=== PATIENT | male | born 1970 | race Caucasian/White ===

== ENCOUNTER → 2017-06-03 | Outpatient (REF) | payer BC ==
[2017-06-08 00:08] LABS: ANCA-ATYPICAL <1:20 titer (Neg:<1:20); CYTOPLASMIC NEUTROP AB ANCA-C <1:20 titer (Neg:<1:20); Lyme Disease IgG Ab 18 kDa Ban Absent (.); Lyme Disease IgG Ab 23 kDa Ban Absent (.); Lyme Disease IgG Ab 28 kDa Ban Absent (.); Lyme Disease IgG Ab 30 kDa Ban Present (.); Lyme Disease IgG Ab 39 kDa Ban Absent (.); Lyme Disease IgG Ab 41 kDa Ban Absent (.); Lyme Disease IgG Ab 45 kDa Ban Absent (.); Lyme Disease IgG Ab 58 kDa Ban Absent (.); Lyme Disease IgG Ab 66 kDa Ban Absent (.); Lyme Disease IgG Ab 93 kDa Ban Absent (.); Lyme Disease IgG West Blot Int Negative (.); Lyme Disease IgG/IgM Antibodie 1.49 ISR (0.00-0.90); Lyme Disease IgM Ab 23 kDa Ban Present (.); Lyme Disease IgM Ab 39 kDa Ban Absent (.); Lyme Disease IgM Ab 41 kDa Ban Absent (.); Lyme Disease IgM Ab Quantitati <0.80 index (0.00-0.79); Lyme Disease IgM West Blot Int Negative (.); PERINUCLEAR AB ANCA-P <1:20 titer (Neg:<1:20)
== END ==
LOC: M LABNEURO 14:06
DX: G62.9 Polyneuropathy, unspecified (principal)
CPT/HCPCS: 86256

== ENCOUNTER → 2017-06-15 | Outpatient (REF) | payer BC ==
[2017-06-18 06:23] LABS: C-PEPTIDE 2.6
[2017-06-18 06:25] LABS: INSULIN LEVEL 10.5 mcU/ML
== END ==
LOC: M LABNEURO 08:09
DX: E66.9 Obesity, unspecified (principal)
CPT/HCPCS: 83525

== ENCOUNTER → 2019-05-05 | Outpatient (CLI) | payer BC ==
[2019-05-05 13:56] LABS: ERYTHROCYTE SEDIMENTATION RATE 17 mm/hr (0-15)
[2019-05-05 13:58] LABS: HEMATOCRIT 42.4 % (42.0-52.0); HEMOGLOBIN 14.7 g/dl (13.5-17.5); MEAN CORPUSCULAR HEMOGLOBIN 29.6 pg (27.0-33.0); MEAN CORPUSCULAR HGB CONC 34.7 g/dl (32.0-36.5); MEAN CORPUSCULAR VOLUME 85.5 fl (80.0-96.0); PLATELET COUNT, AUTOMATED 238 10^3/uL (150-450); RED BLOOD COUNT 4.96 10^6/uL (4.30-6.10); WHITE BLOOD COUNT 5.5 10^3/uL (4.0-10.0)
== END ==
LOC: M WUC 11:05
PROVIDERS: ATTEND Ophthalmology
DX: H47.019 Ischemic optic neuropathy, unspecified eye (principal)

== ENCOUNTER → 2020-01-16 | Outpatient (CLI) | payer BC ==
--- NOTE | 2020-01-18 06:36 | REP ---
INDICATION: SACROILIITIS, NOT ELSEWHERE CLASSIFIED COMPARISON: None. TECHNIQUE: AP, lateral, flexion/extension, and coned-down views of the lumbar spine. FINDINGS: Alignment and lordosis maintained. Vertebral bodies are intact. Disc spaces are relatively normal/age-appropriate. No acute fracture/compression injury or subluxation. No obvious spondylolysis or spondylolisthesis.. Bilateral hip replacement. IMPRESSION: Normal Lumbosacral Spine series. <Electronically signed by Dre Dorsey > 01/18/20 [id number]
== END ==
LOC: M RAD 11:35
PROVIDERS: ATTEND Neurological Surgery
DX: M46.1 Sacroiliitis, not elsewhere classified (principal); M51.36 Other intervertebral disc degeneration, lumbar region; M47.26 Other spondylosis with radiculopathy, lumbar region